=== PATIENT | female | born 1965 | race Caucasian/White ===

== ENCOUNTER → 2023-10-06 08:28 | Outpatient (REF) | payer OTHER, SELFPAY | LOC: RAD 08:28 | PROVIDERS: ATTENDING PHYSICIAN Physician Assistant; FAMILY PHYSICIAN Family Medicine | DX: M79.672 Pain in left foot (principal); M79.671 Pain in right foot | CPT/HCPCS: 73610; 73630; 73650 ==

== ENCOUNTER → 2024-07-17 15:41 | Outpatient (REF) | payer OTHER, SELFPAY | LOC: WDC 15:41 | PROVIDERS: ATTENDING PHYSICIAN Nurse Practitioner Adult Health; FAMILY PHYSICIAN Family Medicine | DX: Z12.31 Encounter for screening mammogram for malignant neoplasm of breast (principal) | CPT/HCPCS: 77063; 77067 ==

== ENCOUNTER → 2024-07-21 08:05 | Outpatient (REF) | payer OTHER, SELFPAY | LOC: HWRAD 08:05 | PROVIDERS: ATTENDING PHYSICIAN Nurse Practitioner Adult Health; FAMILY PHYSICIAN Family Medicine | DX: N95.0 Postmenopausal bleeding (principal); Z12.31 Encounter for screening mammogram for malignant neoplasm of breast | CPT/HCPCS: 76830; 76856 ==

== ENCOUNTER → 2025-07-20 15:43 | Outpatient (REF) | payer OTHER, SELFPAY | LOC: HWWDC 15:43 | PROVIDERS: ATTENDING PHYSICIAN Nurse Practitioner Adult Health; FAMILY PHYSICIAN Family Medicine | DX: Z12.31 Encounter for screening mammogram for malignant neoplasm of breast (principal) | CPT/HCPCS: 77063; 77067 ==

== ENCOUNTER → 2025-08-19 12:55 | Outpatient (REF) | payer OTHER, SELFPAY | LOC: RAD 12:55 | PROVIDERS: ATTENDING PHYSICIAN Nurse Practitioner Adult Health; FAMILY PHYSICIAN Physician Assistant Medical | DX: Z78.0 Asymptomatic menopausal state (principal) | CPT/HCPCS: 77080 ==